=== PATIENT | female | born 1960 | race Two or more races ===

== ENCOUNTER 2023-07-07 18:30 | Inpatient (IN) | payer MEDICARE, OTHER ==
[~2023-07-07] VITALS: Ht 162.6 cm; Wt 80.3 kg
[2023-07-07] MEDS ORDERED: MAG HYDROX/AL HYDROX/SIMETH 30 ML UDC PO PRN (23:00)
[2023-07-07] MEDS ORDERED: BLOOD SUGAR DIAGNOSTIC 1 EACH STRIP IN ONE (23:00)
[2023-07-07] MEDS ORDERED: ACETAMINOPHEN 325 MG TABLET PO PRN (23:00)
[2023-07-07] MEDS ORDERED: MAGNESIUM HYDROXIDE 30 ML UDC PO PRN (23:00)
[2023-07-07] MEDS ORDERED: ALBU18HF2 INH (23:34)
[2023-07-07] MEDS ORDERED: METF-440 PO (23:34)
[2023-07-07] MEDS ORDERED: DESV100T16 PO (23:34)
[2023-07-07] MEDS ORDERED: IBUP-1957 PO (23:34)
[2023-07-07] MEDS ORDERED: OXYC15TA82 PO (23:34)
[2023-07-07] MEDS ORDERED: CLON1TAB12 PO (23:34)
[2023-07-07] MEDS ORDERED: DIVA500T54 MT (23:42)
[2023-07-07] MEDS ORDERED: TRAZ150T75 MT (23:42)
[2023-07-08] MEDS ORDERED: POLY17PO4 PO (00:23)
[2023-07-08] MEDS ORDERED: SENN-18 PO (00:23)
[2023-07-08] MEDS ORDERED: BISA-79 GT (00:23)
[2023-07-08] MEDS: ZOLPIDEM TARTRATE 5 MG TABLET PO PRN ×2 (00:56→20:23)
[2023-07-08 02:18] VITALS: BP 143/97; TEMP 98; O2SAT 98
[2023-07-08 08:00] VITALS: BP 106/69; TEMP 97.5; O2SAT 100
[2023-07-08] MEDS ORDERED: OXYC1TAB12 PO (08:49)
[2023-07-08] MEDS ORDERED: TRAM50TA2 PO (08:49)
[2023-07-08] MEDS ORDERED: ALBUTEROL FS 2.5 MG/3 ML VIAL.NEB NEB PRN (09:30)
[2023-07-08] MEDS ORDERED: IBUPROFEN 800 MG TABLET PO PRN (09:30)
[2023-07-08] MEDS ORDERED: TRAMADOL HCL 50 MG TABLET PO PRN (09:30)
[2023-07-08] MEDS: METFORMIN 500 MG TABLET PO SCH ×2 (09:33→16:59)
[2023-07-08] MEDS: LORAZEPAM 0.5 MG TABLET PO PRN ×3 (09:43→23:03)
[2023-07-08] MEDS: DULOXETINE HCL 30 MG CAPSULE.DR PO SCH (11:16)
[2023-07-08 12:41] LABS: CREATININE 0.8 mg/dL (0.6-1.3)
[2023-07-08 12:47] LABS: CHOLESTEROL 195 mg/dL (<200); HDL CHOLESTEROL 68 mg/dL (40-60); LDL 96 mg/dL (0-99); TRIGLYCERIDES 153 mg/dL (30-150)
[2023-07-08 12:48] LABS: ALBUMIN 3.5 g/dL (3.4-5.0); BILIRUBIN,TOTAL 0.2 mg/dL (0.2-1.0); CALCIUM, SERUM 9.4 mg/dL (8.5-10.1); CREATININE 0.8 mg/dL (0.6-1.3); POTASSIUM 4.1 mmol/L (3.5-5.1); TOTAL PROTEIN, SERUM 7.7 g/dL (6.4-8.2)
[2023-07-08] MEDS: IBUPROFEN 400 MG TABLET PO PRN (14:07)
[2023-07-08 16:00] VITALS: BP 136/83; TEMP 98.4; O2SAT 98
[2023-07-08 20:37] VITALS: BP 117/84; TEMP 98.4; O2SAT 100
[2023-07-08] MEDS ORDERED: TRAZODONE 50 MG TABLET PO SCH (22:00)
[2023-07-09] MEDS: IBUPROFEN 400 MG TABLET PO PRN (03:46)
[2023-07-09] MEDS: LORAZEPAM 0.5 MG TABLET PO PRN (05:56)
[2023-07-09] MEDS ORDERED: NALOXONE HCL 0.4 MG/ML AMPUL IV PRN ×2 (07:30→22:00)
[2023-07-09 08:00] VITALS: BP 108/82; TEMP 98.1; O2SAT 100
[2023-07-09] MEDS: DULOXETINE HCL 30 MG CAPSULE.DR PO SCH ×2 (09:00→09:27)
[2023-07-09] MEDS: oxyCODONE HCL SR 10MG TAB.SR.12H PO SCH ×2 (09:27→21:37)
[2023-07-09] MEDS: METFORMIN 500 MG TABLET PO SCH ×2 (09:27→16:31)
[2023-07-09] MEDS: hydrOXYzine PAMOATE 25 MG CAPSULE PO PRN (12:35)
[2023-07-09] MEDS: oxyCODONE/APAP (5/325 MG) 1 UDTAB TABLET PO PRN (13:51)
[2023-07-09 16:00] VITALS: BP 137/78; TEMP 98.6; O2SAT 99
[2023-07-09 20:23] VITALS: BP 146/69; TEMP 98; O2SAT 99
[2023-07-09] MEDS: OLANZAPINE 5 MG TABLET PO SCH (21:32)
[2023-07-09] MEDS ORDERED: DULOXETINE HCL 30 MG CAPSULE.DR PO SCH (22:00)
[2023-07-09] MEDS: oxyCODONE HCL SR 20MG TAB.SR.12H PO SCH (22:10)
[2023-07-10 08:00] VITALS: BP_SYST 117; BP_SYST 130; BP_DIAS 64; BP_DIAS 78; TEMP 97.9; TEMP 98; O2SAT 99
[2023-07-10] MEDS: METFORMIN 500 MG TABLET PO SCH ×2 (08:46→16:17)
[2023-07-10] MEDS: oxyCODONE HCL SR 20MG TAB.SR.12H PO SCH ×2 (08:46→21:36)
[2023-07-10] MEDS: oxyCODONE/APAP (5/325 MG) 1 UDTAB TABLET PO PRN ×2 (11:19→17:54)
[2023-07-10] MEDS: hydrOXYzine PAMOATE 25 MG CAPSULE PO PRN (13:19)
[2023-07-10] MEDS: IBUPROFEN 400 MG TABLET PO PRN (15:01)
[2023-07-10 16:00] VITALS: BP 132/72; TEMP 98.1; O2SAT 97
[2023-07-10 16:08] VITALS: BP 132/72; TEMP 98; O2SAT 98
[2023-07-10 20:26] VITALS: BP 147/76; TEMP 98; O2SAT 100
[2023-07-10] MEDS: OLANZAPINE 5 MG TABLET PO SCH (21:35)
[2023-07-10] MEDS ORDERED: DULOXETINE HCL 20 MG CAPSULE.DR PO SCH (22:00)
[2023-07-10] MEDS ORDERED: DULOXETINE HCL 30 MG CAPSULE.DR PO SCH (22:00)
[2023-07-11 08:00] VITALS: BP 126/85; TEMP 98.1; O2SAT 97
[2023-07-11] MEDS: oxyCODONE HCL SR 20MG TAB.SR.12H PO SCH (09:24)
[2023-07-11] MEDS: METFORMIN 500 MG TABLET PO SCH (09:24)
[2023-07-11] MEDS: IBUPROFEN 400 MG TABLET PO PRN (10:45)
[2023-07-11] MEDS: hydrOXYzine PAMOATE 25 MG CAPSULE PO PRN (12:35)
[2023-07-11] MEDS: oxyCODONE/APAP (5/325 MG) 1 UDTAB TABLET PO PRN (12:36)
[2023-07-11] MEDS ORDERED: IOHEXOL-350 100 ML VIAL IV ONE (15:56)
[2023-07-11 16:00] VITALS: BP 153/93; TEMP 98.4; O2SAT 100
[2023-07-11 16:07] LABS: BASOPHILS # (AUTO) 0.1 K/uL (0.0-0.2); BASOPHILS % (AUTO) 0.9 % (0.0-2.0); EOSINOPHILS # (AUTO) 0.2 K/uL (0.0-0.7); EOSINOPHILS % (AUTO) 1.7 % (0.0-6.0); HEMATOCRIT 42 % (33-45); HEMOGLOBIN 13.7 g/dL (11.5-14.8); LYMPHOCYTES # (AUTO) 4.3 K/uL (0.8-4.8); LYMPHOCYTES % (AUTO) 39.8 % (20.0-44.0); MEAN CORPUSCULAR HEMOGLOBIN 30 PG (26.0-33.0); MEAN CORPUSCULAR HGB CONC 33 g/dl (31.0-36.0); MEAN CORPUSCULAR VOLUME 91 fL (82-100); MONOCYTES # (AUTO) 1.1 K/uL (0.1-1.30); MONOCYTES % (AUTO) 10.2 % (2.0-12.0); NEUTROPHILS # (AUTO) 5.2 K/uL (1.8-8.9); NEUTROPHILS % (AUTO) 47.4 % (43.0-81.0); PLATELET COUNT (AUTO) 389 K/uL (150-450); RED CELL DISTRIBUTION WIDTH 13.2 % (11.5-15.0); WHITE BLOOD COUNT (AUTO) 10.9 K/uL (4.3-11.0)
[2023-07-11 16:15] LABS: ERYTHROCYTE SEDIMENTATION RATE 59 MM/HR (0-30)
[2023-07-11 16:23] LABS: INR 1.03 (0.91-1.10); PARTIAL THROMBOPLASTIN TIME 27.9 SEC (24.3-34.3); PROTHROMBIN TIME 10.9 SECS (9.2-11.1)
[2023-07-11] MEDS ORDERED: BLOOD SUGAR DIAGNOSTIC 1 EACH STRIP IN SCH ×2 (17:30→18:00)
[2023-07-11 17:49] LABS: ALANINE AMINOTRANSFERASE 43 U/L (12-78); ALKALINE PHOSPHATASE 88 U/L (46-116); ASPARTATE AMINOTRANSFERASE 26 U/L (15-37); BILIRUBIN,TOTAL 0.3 mg/dL (0.2-1.0); CALCIUM, SERUM 9.8 mg/dL (8.5-10.1); CARBON DIOXIDE 16 mmol/L (21-32); CHLORIDE 97 mmol/L (98-107); CREATININE 1.4 mg/dL (0.6-1.3); GLUCOSE 204 mg/dL (74-106); POTASSIUM 3.8 mmol/L (3.5-5.1); SODIUM SERUM 135 mmol/L (136-145); TOTAL PROTEIN, SERUM 8.3 g/dL (6.4-8.2); UREA NITROGEN, BLOOD 14 mg/dL (7-18)
[2023-07-11 18:01] LABS: THYROID STIMULATING HORMONE 0.011 uIU/mL (0.358-3.74)
[2023-07-11 18:13] LABS: CHOLESTEROL 184 mg/dL (<200); CREATINE KINASE, TOTAL 51 U/L (26-192); HDL CHOLESTEROL 77 mg/dL (40-60); LDL 84 mg/dL (0-99); TRIGLYCERIDES 120 mg/dL (30-150)
[2023-07-11] MEDS ORDERED: ZOLP5TAB2 PO (18:45)
[2023-07-11] MEDS ORDERED: NALO0.4V2 IV (18:45)
[2023-07-11] MEDS ORDERED: HYDR25CA PO (18:45)
[2023-07-11] MEDS ORDERED: MAGN400O6 PO (18:45)
[2023-07-11] MEDS ORDERED: ACET-868 PO (18:45)
[2023-07-11] MEDS ORDERED: OXYC20TA58 PO (18:45)
[2023-07-11] MEDS ORDERED: DULO20CA PO (18:45)
[2023-07-11] MEDS ORDERED: MAG30ORA PO (18:45)
[2023-07-11] MEDS ORDERED: OLAN5TAB3 PO (18:45)
[2023-07-11] MEDS ORDERED: OXYC-128 PO (18:45)
== END 2023-07-11 17:59 | disposition home or self-care (01) | DRG 885 ==
LOC: GPS 22:30
PROVIDERS: ADMIT Psychiatry & Neurology Psychiatry; ATTEND Nurse Practitioner Acute Care
DX: F31.30 Bipolar disorder, current episode depressed, mild or moderate severity, unspecified (principal); D68.59 Other primary thrombophilia; E44.0 Moderate protein-calorie malnutrition; E87.1 Hypo-osmolality and hyponatremia; E66.01 Morbid (severe) obesity due to excess calories; F60.9 Personality disorder, unspecified; E11.9 Type 2 diabetes mellitus without complications; G89.4 Chronic pain syndrome; Z79.891 Long term (current) use of opiate analgesic; T40.2X2D Poisoning by other opioids, intentional self-harm, subsequent encounter; F29 Unspecified psychosis not due to a substance or known physiological condition; E88.09 Other disorders of plasma-protein metabolism, not elsewhere classified; J44.9 Chronic obstructive pulmonary disease, unspecified; Z91.51 Personal history of suicidal behavior; Z68.30 Body mass index [BMI] 30.0-30.9, adult
CPT/HCPCS: 36415; 70450-TC; 70496-TC; 70498-TC; 71045-TC; 73564-TC; 80053-TC; 80061-TC; 82550-TC; 82565-TC; 82962-TC; 84443-TC; 84484-TC; 85025-TC; 85652-TC; 85730-TC; 87081-TC; 97112-TC; 97116-TC; 97530-TC; Q0177; Q9967

== ENCOUNTER 2023-07-11 18:30 | Inpatient (IN) | payer MEDICARE, OTHER ==
[~2023-07-11] VITALS: Ht 162.6 cm; Wt 78.9 kg
[~2023-07-11 18:30] MED LIST: ALBU18HF2 INH; CLON1TAB12 PO; DESV100T16 PO; IBUP-1957 PO; METF-440 PO; OXYC15TA82 PO; OXYC1TAB12 PO; TRAM50TA2 PO
[2023-07-11] MEDS ORDERED: HYDR25CA PO (18:45)
[2023-07-11] MEDS ORDERED: MAG30ORA PO (18:45)
[2023-07-11] MEDS ORDERED: OXYC20TA58 PO (18:45)
[2023-07-11] MEDS ORDERED: OXYC-128 PO (18:45)
[2023-07-11] MEDS ORDERED: MAGN400O6 PO (18:45)
[2023-07-11] MEDS ORDERED: NALO0.4V2 IV (18:45)
[2023-07-11] MEDS ORDERED: OLAN5TAB3 PO (18:45)
[2023-07-11] MEDS ORDERED: DULO20CA PO (18:45)
[2023-07-11] MEDS ORDERED: ACET-868 PO (18:45)
[2023-07-11] MEDS ORDERED: ZOLP5TAB2 PO (18:45)
[2023-07-11] MEDS ORDERED: ACETAMINOPHEN 325 MG TABLET PO PRN (19:00)
[2023-07-11] MEDS ORDERED: ONDANSETRON HCL/PF 4 MG/2 ML VIAL IVP PRN (19:00)
[2023-07-11] MEDS ORDERED: MAG HYDROX/AL HYDROX/SIMETH 30 ML UDC PO PRN (19:00)
[2023-07-11] MEDS ORDERED: IV 1/2NS 1000 ML 1,000 ML IV PRN (19:00)
[2023-07-11] MEDS ORDERED: LEVETIRACETAM (500MG) 500 MG in IV NS 0.9% 100 ML IV SCH (19:00)
[2023-07-11] MEDS ORDERED: LORAZEPAM INJ 2 MG/ML VIAL IV PRN (19:00)
[2023-07-11] MEDS ORDERED: MAGNESIUM HYDROXIDE 30 ML UDC PO PRN (19:00)
[2023-07-11] MEDS ORDERED: CLONIDINE HCL 0.1 MG TABLET PO PRN (19:30)
[2023-07-11 20:00] VITALS: BP 133/78; TEMP 98.4; O2SAT 99
[2023-07-11 20:29] LABS: THYROID STIMULATING HORMONE 2.715 uIU/mL (0.358-3.74)
[2023-07-11] MEDS: LEVETIRACETAM (250 MG) 250 MG TABLET PO SCH (21:52)
[2023-07-11] MEDS: ENOXAPARIN SODIUM 40 MG/0.4 ML DISP.SYRIN SQ SCH (21:53)
[2023-07-12] VITALS: BP 106/74; TEMP 98.2; O2SAT 97
[2023-07-12] MEDS ORDERED: IBUPROFEN 800 MG TABLET PO PRN (00:15)
[2023-07-12] MEDS ORDERED: NALOXONE HCL 0.4 MG/ML AMPUL IV PRN (01:00)
[2023-07-12] MEDS ORDERED: DEXTROSE 50%-WATER 50 ML DISP.SYRIN IV PRN (03:00)
[2023-07-12] MEDS ORDERED: INSULIN REGULAR, HUMAN 100 UNIT/ML 3 ML VIAL SQ PRN (03:00)
[2023-07-12 04:00] VITALS: BP 119/84; TEMP 97.7; O2SAT 98
[2023-07-12 06:08] LABS: BASOPHILS # (AUTO) 0.1 K/uL (0.0-0.2); EOSINOPHILS # (AUTO) 0.2 K/uL (0.0-0.7); EOSINOPHILS % (AUTO) 1.7 % (0.0-6.0); HEMATOCRIT 42 % (33-45); HEMOGLOBIN 13.8 g/dL (11.5-14.8); LYMPHOCYTES # (AUTO) 3.5 K/uL (0.8-4.8); LYMPHOCYTES % (AUTO) 40.4 % (20.0-44.0); MEAN CORPUSCULAR HEMOGLOBIN 30 PG (26.0-33.0); MEAN CORPUSCULAR HGB CONC 33 g/dl (31.0-36.0); MEAN CORPUSCULAR VOLUME 90 fL (82-100); MONOCYTES # (AUTO) 0.9 K/uL (0.1-1.30); NEUTROPHILS # (AUTO) 4.1 K/uL (1.8-8.9); NEUTROPHILS % (AUTO) 46.9 % (43.0-81.0); PLATELET COUNT (AUTO) 366 K/uL (150-450); RED BLOOD CELL COUNT(AUTO) 4.61 MIL/uL (4.0-5.2); RED CELL DISTRIBUTION WIDTH 13.3 % (11.5-15.0); WHITE BLOOD COUNT (AUTO) 8.7 K/uL (4.3-11.0)
[2023-07-12] MEDS ORDERED: IBUPROFEN 200 MG TABLET PO PRN (06:13)
[2023-07-12 06:24] LABS: CALCIUM, SERUM 9.9 mg/dL (8.5-10.1); CREATININE 1.1 mg/dL (0.6-1.3); MAGNESIUM 2.5 mg/dL (1.8-2.4); PHOSPHORUS 3.6 mg/dL (2.5-4.9); POTASSIUM 3.9 mmol/L (3.5-5.1)
[2023-07-12] MEDS: BLOOD SUGAR DIAGNOSTIC 1 EACH STRIP IN SCH ×3 (06:48→18:01)
[2023-07-12] MEDS: METFORMIN 500 MG TABLET PO SCH ×2 (07:28→17:42)
[2023-07-12] MEDS ORDERED: BLOOD SUGAR DIAGNOSTIC 1 EACH STRIP IN SCH (07:30)
[2023-07-12] MEDS ORDERED: PANTOPRAZOLE 40 MG TABLET.DR PO SCH (07:30)
[2023-07-12 08:00] VITALS: BP 98/65; TEMP 98.4; O2SAT 100
[2023-07-12] MEDS: LEVETIRACETAM (250 MG) 250 MG TABLET PO SCH ×2 (08:33→20:26)
[2023-07-12 12:00] VITALS: BP 105/81; TEMP 97.3; O2SAT 98
[2023-07-12 16:00] VITALS: BP 119/72; TEMP 97.5; O2SAT 97
[2023-07-12 20:00] VITALS: BP 113/68; TEMP 98.4; O2SAT 99
[2023-07-12] MEDS: ENOXAPARIN SODIUM 40 MG/0.4 ML DISP.SYRIN SQ SCH (20:27)
== END 2023-07-12 21:30 | disposition left against medical advice (07) | DRG 917 ==
LOC: TELE 18:30
DX: T40.602A Poisoning by unspecified narcotics, intentional self-harm, initial encounter (principal); I63.89 Other cerebral infarction; D68.59 Other primary thrombophilia; E44.0 Moderate protein-calorie malnutrition; E87.1 Hypo-osmolality and hyponatremia; Y92.9 Unspecified place or not applicable; R56.9 Unspecified convulsions; F29 Unspecified psychosis not due to a substance or known physiological condition; Z79.891 Long term (current) use of opiate analgesic; Z79.899 Other long term (current) drug therapy; E88.09 Other disorders of plasma-protein metabolism, not elsewhere classified; G89.4 Chronic pain syndrome; J44.9 Chronic obstructive pulmonary disease, unspecified; E66.9 Obesity, unspecified; E11.9 Type 2 diabetes mellitus without complications; Z88.0 Allergy status to penicillin; Z88.1 Allergy status to other antibiotic agents; Z88.2 Allergy status to sulfonamides; Z88.3 Allergy status to other anti-infective agents; Z79.51 Long term (current) use of inhaled steroids; Z68.29 Body mass index [BMI] 29.0-29.9, adult; Z79.84 Long term (current) use of oral hypoglycemic drugs; Z88.5 Allergy status to narcotic agent; Z88.8 Allergy status to other drugs, medicaments and biological substances; F41.9 Anxiety disorder, unspecified; F32.A Depression, unspecified; R29.701 NIHSS score 1
CPT/HCPCS: 36415; 80048-TC; 80061-TC; 82962-TC; 83735-TC; 84100-TC; 84443-TC; 85025-TC; 87081-TC; 92526; 92611-TC; 97530-TC; A4223; G0378; J1650; J1815; J3490; J7030